=== PATIENT | female | born 1970 | race Caucasian/White ===

== ENCOUNTER 2016-04-08 07:05 | Emergency (ER) | payer OTHER ==
[2016-04-08] MEDS ORDERED: TRAMADOL 50 MG TAB ONE (08:26)
[2016-04-08] MEDS ORDERED: DICYCLOMINE 10 MG CAP ONE (08:27)
[2016-04-08] MEDS ORDERED: SODIUM CHLORIDE 0.9% 100 ML IV ONE (08:27)
[2016-04-08] MEDS ORDERED: CEFTRIAXONE 1 GM VIAL ONE (08:27)
[2016-04-08] MEDS ORDERED: ONDANSETRON 4 MG VIAL ONE (08:27)
[2016-04-08] MEDS ORDERED: SODIUM CHLORIDE 0.9% 1,000 ML ONE (08:27)
== END 2016-04-08 10:03 | disposition home or self-care (01) ==
LOC: ER 07:05
CPT/HCPCS: 36415; 74176; 80053; 81001; 83690; 84703; 85025; 87088; 96361; 96365; 96375

== ENCOUNTER 2016-04-27 16:48 | Emergency (ER) | payer OTHER ==
[2016-04-27] MEDS ORDERED: ONDANSETRON 4 MG VIAL ONE (18:18)
[2016-04-27] MEDS ORDERED: MORPHINE 4 MG/ML SYR ONE (18:18)
[2016-04-27] MEDS ORDERED: SODIUM CHLORIDE 0.9% 1,000 ML ONE (18:18)
[2016-04-27] MEDS ORDERED: SODIUM CHLORIDE 0.9% 100 ML IV ONE (18:45)
[2016-04-27] MEDS ORDERED: CEFTRIAXONE 1 GM VIAL ONE (18:45)
== END 2016-04-27 19:39 | disposition home or self-care (01) ==
LOC: ER 16:48
DX: R11.2 Nausea with vomiting, unspecified (principal); K31.84 Gastroparesis; F17.210 Nicotine dependence, cigarettes, uncomplicated
CPT/HCPCS: 36415; 80053; 81001; 83690; 85025; 87088; 96361; 96365; 96375